=== PATIENT | female | born 1960 | race Asian ===

== ENCOUNTER 2023-05-03 00:34 | Emergency (ER) | payer MEDICAID, OTHER ==
[~2023-05-03] VITALS: Ht 154.9 cm; Wt 72.6 kg
[2023-05-03 00:48] VITALS: TEMP 98.8
[2023-05-03 01:33] LABS: HEMOGLOBIN 11.1 g/dL (11.5-14.8); MEAN CORPUSCULAR HEMOGLOBIN 29 PG (26.0-33.0)
[2023-05-03 01:39] LABS: APPEARANCE,URINE CLEAR (CLEAR); BILIRUBIN,URINE NEGATIVE (NEGATIVE); BLOOD, URINE 1+ Ery/uL (NEGATIVE); COLOR,URINE YELLOW (YELLOW); KETONES,URINE NEGATIVE (NEGATIVE); LEUKOCYTE ESTERASE ,URINE TRACE (NEGATIVE); NITRITE, URINE NEGATIVE (NEGATIVE); PROTEIN,URINE NEGATIVE (NEGATIVE); UGLUCOSE NEGATIVE (NEGATIVE); UROBILINOGEN,URINE 0.2 EU/dL (0.2)
[2023-05-03 01:40] LABS: BASOPHILS % (AUTO) 0.3 % (0.0-2.0); EOSINOPHILS # (AUTO) 0.3 K/uL (0.0-0.7); EOSINOPHILS % (AUTO) 3.1 % (0.0-6.0); HEMATOCRIT 33 % (33-45); LYMPHOCYTES # (AUTO) 4.6 K/uL (0.8-4.8); LYMPHOCYTES % (AUTO) 42.5 % (20.0-44.0); MEAN CORPUSCULAR HGB CONC 34 g/dl (31.0-36.0); MEAN CORPUSCULAR VOLUME 86 fL (82-100); MONOCYTES # (AUTO) 0.7 K/uL (0.1-1.30); MONOCYTES % (AUTO) 6.6 % (2.0-12.0); NEUTROPHILS # (AUTO) 5.2 K/uL (1.8-8.9); NEUTROPHILS % (AUTO) 47.5 % (43.0-81.0); PLATELET COUNT (AUTO) 267 K/uL (150-450); RED BLOOD CELL COUNT(AUTO) 3.83 MIL/uL (4.0-5.2); RED CELL DISTRIBUTION WIDTH 12.9 % (11.5-15.0); WHITE BLOOD COUNT (AUTO) 10.9 K/uL (4.3-11.0)
[2023-05-03 01:47] LABS: ALANINE AMINOTRANSFERASE 16 U/L (12-78); ALBUMIN 3.5 g/dL (3.4-5.0); ALKALINE PHOSPHATASE 107 U/L (46-116); ASPARTATE AMINOTRANSFERASE 10 U/L (15-37); BILIRUBIN,DIRECT 0.1 mg/dL (0.0-0.2); BILIRUBIN,TOTAL 0.2 mg/dL (0.2-1.0); CALCIUM, SERUM 9.2 mg/dL (8.5-10.1); CARBON DIOXIDE 26 mmol/L (21-32); CHLORIDE 104 mmol/L (98-107); CREATININE 0.7 mg/dL (0.6-1.3); GLUCOSE 125 mg/dL (74-106); LIPASE 40 U/L (16-77); POTASSIUM 3.7 mmol/L (3.5-5.1); SODIUM SERUM 139 mmol/L (136-145); TOTAL PROTEIN, SERUM 7.4 g/dL (6.4-8.2); UREA NITROGEN, BLOOD 17 mg/dL (7-18)
[2023-05-03 01:52] LABS: ADD URINE CULTURE NO; BACTERIA,URINE None seen /HPF (None Seen); WBC,URINE 0-2 /HPF (0-3)
[2023-05-03] MEDS ORDERED: ACETAMINOPHEN 325 MG TABLET ONE (02:08)
[2023-05-03] MEDS ORDERED: KETOROLAC TROMETHAMINE 15 MG/ML VIAL ONE (02:08)
[2023-05-03] MEDS: KETOROLAC TROMETHAMINE 15 MG/ML VIAL IV ONE (02:14)
[2023-05-03] MEDS: ACETAMINOPHEN 325 MG TABLET PO ONE (02:14)
[2023-05-03] MEDS ORDERED: NITR100C6 PO ×2 (03:50→22:50)
[2023-05-03 04:16] VITALS: BP 148/76; O2SAT 100
== END 2023-05-03 04:16 | disposition home or self-care (01) ==
LOC: ER 00:38
DX: R07.9 Chest pain, unspecified (principal); R51.9 Headache, unspecified; R31.29 Other microscopic hematuria; R10.2 Pelvic and perineal pain; R30.0 Dysuria; I10 Essential (primary) hypertension; E78.5 Hyperlipidemia, unspecified; E11.9 Type 2 diabetes mellitus without complications; Z20.822 Contact with and (suspected) exposure to COVID-19
CPT/HCPCS: 99285; 70450; 96374; 71045; 87426; 93005; 74176; 85025; 80048; 87086; 87804; 83690; 80076; 81001; 36415; 84484; J1885

== ENCOUNTER 2023-05-10 18:46 | Emergency (ER) | payer OTHER ==
[~2023-05-10] VITALS: Ht 149.9 cm; Wt 49.9 kg
[~2023-05-10 18:46] MED LIST: NITR100C6 PO
[2023-05-10 20:33] LABS: APPEARANCE,URINE Clear (CLEAR); BILIRUBIN,URINE Negative (NEGATIVE); BLOOD, URINE Small Ery/uL (NEGATIVE); COLOR,URINE YELLOW (YELLOW); KETONES,URINE Trace mg/dL (NEGATIVE); LEUKOCYTE ESTERASE ,URINE Small (NEGATIVE); NITRITE, URINE Negative (NEGATIVE); PH,URINE 5.5 (5.0-8.0); PROTEIN,URINE Negative (NEGATIVE); UGLUCOSE Negative (NEGATIVE); UROBILINOGEN,URINE 0.2 EU/dL (0.2)
[2023-05-10] MEDS ORDERED: dexaMETHasone SOD PHOSPHATE 1 ML ONE (20:43)
[2023-05-10] MEDS ORDERED: KETOROLAC TROMETHAMINE INJ 30 MG/ML VIAL ONE (20:43)
[2023-05-10 20:47] LABS: ADD URINE CULTURE YES; BACTERIA,URINE 1+ /HPF (None Seen)
[2023-05-10] MEDS: dexaMETHasone SOD PHOSPHATE 4 MG/ML VIAL IM ONE (20:50)
[2023-05-10] MEDS: KETOROLAC TROMETHAMINE INJ 30 MG/ML VIAL IM ONE (20:53)
[2023-05-10] MEDS ORDERED: CEPH500T PO (21:12)
[2023-05-10] MEDS ORDERED: LIDO30AD10 TP (21:12)
[2023-05-10] MEDS ORDERED: IBUP-1955 PO (21:16)
[2023-05-10] MEDS ORDERED: ACET325C7 PO (21:16)
[2023-05-10 22:36] VITALS: BP 101/73; TEMP 98; O2SAT 99
== END 2023-05-10 22:36 | disposition home or self-care (01) ==
LOC: ER 18:51
DX: N39.0 Urinary tract infection, site not specified (principal); M54.50 Low back pain, unspecified; I10 Essential (primary) hypertension; E11.9 Type 2 diabetes mellitus without complications; E78.5 Hyperlipidemia, unspecified; M19.90 Unspecified osteoarthritis, unspecified site; Z79.899 Other long term (current) drug therapy
CPT/HCPCS: 99284; 96372 ×2; 87086; 81001; J1100; J1885

== ENCOUNTER 2023-07-20 18:03 | Emergency (ER) | payer OTHER ==
[~2023-07-20] VITALS: Ht 165.1 cm; Wt 51.3 kg
[~2023-07-20 18:03] MED LIST changes: +ACET325C7 PO; +CEPH500T PO; +IBUP-1955 PO; +LIDO30AD10 TP
[2023-07-20 19:46] VITALS: TEMP 98.1
[2023-07-20] MEDS ORDERED: ACETAMINOPHEN 325 MG TABLET ONE (20:04)
[2023-07-20] MEDS: ACETAMINOPHEN 325 MG TABLET PO ONE (20:07)
[2023-07-20 20:22] VITALS: BP 124/74
[2023-07-20] MEDS ORDERED: IBUP-1953 PO (21:22)
[2023-07-20] MEDS ORDERED: TYL2T PO (21:22)
[2023-07-20 21:28] VITALS: O2SAT 97
[2023-07-20] MEDS ORDERED: AMOX-430 PO (21:29)
== END 2023-07-20 21:28 | disposition home or self-care (01) ==
LOC: ER 18:07
DX: M79.18 Myalgia, other site (principal); J02.9 Acute pharyngitis, unspecified; M79.605 Pain in left leg; M79.604 Pain in right leg; M79.642 Pain in left hand; M79.641 Pain in right hand; R07.81 Pleurodynia; I10 Essential (primary) hypertension; E11.9 Type 2 diabetes mellitus without complications; E78.5 Hyperlipidemia, unspecified
CPT/HCPCS: 71111-TC; 73030-TC; 73060-TC; 73552; 73560-TC; 73562; 73564-TC; 73590-TC

== ENCOUNTER 2023-09-28 17:25 | Emergency (ER) | payer OTHER ==
[~2023-09-28] VITALS: Ht 142.2 cm; Wt 53.5 kg
[~2023-09-28 17:25] MED LIST changes: +AMOX-430 PO; +IBUP-1953 PO; +TYL2T PO
[2023-09-28 17:32] VITALS: BP 132/78; TEMP 98.8; O2SAT 100
[2023-09-28] MEDS ORDERED: CIPR10DR RIGHT EAR (18:02)
== END 2023-09-28 18:13 | disposition home or self-care (01) ==
LOC: ER 17:32
DX: H72.91 Unspecified perforation of tympanic membrane, right ear (principal); I10 Essential (primary) hypertension; E11.9 Type 2 diabetes mellitus without complications; E78.5 Hyperlipidemia, unspecified